=== PATIENT | female | born 1930 | race Caucasian/White ===

== ENCOUNTER 2017-02-04 09:53 | Day surgery (SDC) | payer OTHER ==
[~2017-02-04] VITALS: Ht 162.6 cm; Wt 82.0 kg
[~2017-02-04 09:53] MED LIST: AMLODIPINE-BEN1 EAC5 PO; ASPIRIN81 M2 PO; ATORVASTATIN CA10 MG PO; HYDROCHLOROTH12.5 M3 PO
== END 2017-02-04 12:23 | disposition home or self-care (01) ==
LOC: CATH 09:53
DX: C85.90 Non-Hodgkin lymphoma, unspecified, unspecified site (principal); I87.2 Venous insufficiency (chronic) (peripheral); Z83.3 Family history of diabetes mellitus
CPT/HCPCS: C1752; C1894; J0690; J1644; J2250; J3010; S0020

== ENCOUNTER → 2017-08-16 | Outpatient (CLI) | payer OTHER ==
[~2017-08-16] MED LIST changes: +ONDANSETRON HCL8 MG PO; +PROCHLORPERAZIN10 MG PO
== END | disposition home or self-care (01) ==
LOC: AMB 10:18
DX: Z45.2 Encounter for adjustment and management of vascular access device (principal); I87.8 Other specified disorders of veins; Z92.21 Personal history of antineoplastic chemotherapy

== ENCOUNTER 2017-12-09 11:54 | Emergency (ER) | payer OTHER ==
[~2017-12-09] VITALS: Ht 160 cm; Wt 77.9 kg
[2017-12-09 12:36] VITALS: BP 148/62
== END 2017-12-09 13:08 | disposition left against medical advice (07) ==
LOC: EME 11:54
DX: R79.89 Other specified abnormal findings of blood chemistry (principal); Z53.21 Procedure and treatment not carried out due to patient leaving prior to being seen by health care provider

== ENCOUNTER 2018-01-02 13:40 | Inpatient (IN) | payer OTHER ==
[~2018-01-02] VITALS: Ht 160 cm; Wt 77.2 kg
[2018-01-02 15:07] LABS: HEMATOCRIT 27.6 % (36.0-46.0); HEMOGLOBIN 8.9 G/DL (11.9-15.5); MCH 24.8 PG (29.0-34.0); MCHC 32.2 G/DL (30.0-36.0); MCV 76.9 FL (83-99); PLATELET COUNT 560 K/uL (156-360); RBC DIS.WIDTH-CV 17.3 % (11.8-14.6); RBC DIS.WIDTH-SD 47.5 % (39-53); RED BLOOD COUNT 3.59 M/uL (3.80-5.20)
[2018-01-02 15:18] LABS: CHLORIDE 100 mEq/L (99-109); POTASSIUM 4.1 mEq/L (3.7-5.4); SODIUM 134 mEq/L (136-147)
[2018-01-02 15:20] LABS: GLUCOSE 128 mg/dL (70-99)
[2018-01-02 15:23] LABS: CREATININE 1.6 mg/dL (0.6-1.3); GFR ESTIMATE (CALCULATED) 32 mL/min/
[2018-01-02 15:24] LABS: UREA NITROGEN (BUN) 22 mg/dL (9-23)
[2018-01-02 15:28] LABS: TROP-I INTERPRETATION NEGATIVE; TROPONIN-I 0.02 ng/mL (0.0-0.30)
[2018-01-02] MEDS ORDERED: VENTOLIN HFA18 GM IH (16:26)
[2018-01-02] MEDS ORDERED: ALEVE220 MG PO (16:27)
[2018-01-02 19:14] VITALS: BP 130/61
[2018-01-03] VITALS (7 sets, daily range): BP systolic 107–143; BP diastolic 53–70
[2018-01-03 06:01] LABS: HEMATOCRIT 24.6 % (36.0-46.0); HEMOGLOBIN 7.6 G/DL (11.9-15.5); MCH 24.4 PG (29.0-34.0); MCHC 30.9 G/DL (30.0-36.0); MCV 78.8 FL (83-99); PLATELET COUNT 462 K/uL (156-360); RBC DIS.WIDTH-CV 17.6 % (11.8-14.6); RED BLOOD COUNT 3.12 M/uL (3.80-5.20); WHITE BLOOD COUNT 14.9 K/uL (4.1-10.2)
[2018-01-03 06:23] LABS: CHLORIDE 105 MEQ/L (99-109); CREATININE 1.3 MG/DL (0.6-1.3); GFR ESTIMATE (CALCULATED) 41 mL/min/; GLUCOSE 136 mg/dL (70-99); POTASSIUM 3.9 MEQ/L (3.7-5.4); SODIUM 137 MEQ/L (136-147); UREA NITROGEN (BUN) 18 mg/dL (9-23)
[2018-01-03 12:04] LABS: HEMATOCRIT 26.7 % (36.0-46.0); HEMOGLOBIN 8.2 G/DL (11.9-15.5); MCV 79.2 FL (83-99)
[2018-01-03 12:45] LABS: APPEARANCE CLEAR ((CLEAR)); BILIRUBIN NEGATIVE; BLOOD SMALL; COLOR YELLOW ((YELLOW)); GLUCOSE (STRIP) NEGATIVE; KETONES NEGATIVE; LEUKOCYTES NEGATIVE; NITRITE NEGATIVE; PROTEIN (STRIP) NEGATIVE; SPECIFIC GRAVITY 1.016 (1.000-1.030)
[2018-01-03 13:13] LABS: BACTERIA RARE /HPF; EPITHELIAL CELLS 1+ /HPF; MUCUS NONE SEEN /LPF; RED BLOOD CELLS 0-5 /HPF (0-5); UCUL ADDED? YES
[2018-01-04 03:38] VITALS: BP 142/65
[2018-01-04 06:05] LABS: HEMATOCRIT 27.1 % (36.0-46.0); HEMOGLOBIN 8.2 G/DL (11.9-15.5); MCH 23.9 PG (29.0-34.0); MCHC 30.3 G/DL (30.0-36.0); PLATELET COUNT 515 K/uL (156-360); RBC DIS.WIDTH-CV 17.8 % (11.8-14.6); RBC DIS.WIDTH-SD 50.4 % (39-53); RED BLOOD COUNT 3.43 M/uL (3.80-5.20); WHITE BLOOD COUNT 14.1 K/uL (4.1-10.2)
[2018-01-04 06:28] LABS: ERTH.SED.RATE 87 MM/HR (0-30)
[2018-01-04 06:51] LABS: C-REACTIVE PROTEIN 112.7 MG/L (0-10); CHLORIDE 103 MEQ/L (99-109); CREATININE 1.4 MG/DL (0.6-1.3); GFR ESTIMATE (CALCULATED) 38 mL/min/; POTASSIUM 4.3 MEQ/L (3.7-5.4); SODIUM 134 MEQ/L (136-147); UREA NITROGEN (BUN) 18 mg/dL (9-23)
[2018-01-04 06:53] LABS: GLUCOSE 97 mg/dL (70-99)
[2018-01-04 07:26] VITALS: BP 122/66
[2018-01-04 12:19] VITALS: BP 126/61
[2018-01-04 16:16] VITALS: BP 142/68
[2018-01-04 20:07] VITALS: BP 132/62
[2018-01-04 22:51] VITALS: BP 136/63
[2018-01-05 03:57] VITALS: BP 123/59
[2018-01-05 05:53] LABS: HEMATOCRIT 24.8 % (36.0-46.0); HEMOGLOBIN 7.5 G/DL (11.9-15.5); MCH 24.1 PG (29.0-34.0); MCHC 30.2 G/DL (30.0-36.0); MCV 79.7 FL (83-99); PLATELET COUNT 475 K/uL (156-360); RBC DIS.WIDTH-CV 18.2 % (11.8-14.6); RBC DIS.WIDTH-SD 51.8 % (39-53); RED BLOOD COUNT 3.11 M/uL (3.80-5.20); WHITE BLOOD COUNT 14.1 K/uL (4.1-10.2)
[2018-01-05 06:15] LABS: CHLORIDE 104 MEQ/L (99-109); CREATININE 1.1 MG/DL (0.6-1.3); GFR ESTIMATE (CALCULATED) 50 mL/min/; GLUCOSE 95 mg/dL (70-99); POTASSIUM 4.7 MEQ/L (3.7-5.4); SODIUM 136 MEQ/L (136-147); UREA NITROGEN (BUN) 13 mg/dL (9-23)
[2018-01-05 07:08] VITALS: BP 122/60
[2018-01-05 11:25] VITALS: BP 140/60
[2018-01-05 15:30] VITALS: BP 130/61
== END 2018-01-05 16:43 | disposition home or self-care (01) | DRG 194 ==
LOC: EME 13:40 → EDOF 16:44 → 5SOUTH 16:44 → ENRESERV 16:46 → 5SOUTH 18:55
PROVIDERS: Emergency Medicine; Physician Assistant Medical; Student in an Organized Health Care Education/Training Program
DX: J18.9 Pneumonia, unspecified organism (principal); N17.9 Acute kidney failure, unspecified; E87.2 Acidosis; C83.30 Diffuse large B-cell lymphoma, unspecified site; R09.02 Hypoxemia; D63.8 Anemia in other chronic diseases classified elsewhere; D72.810 Lymphocytopenia; I10 Essential (primary) hypertension; E78.5 Hyperlipidemia, unspecified; M79.89 Other specified soft tissue disorders; Z66 Do not resuscitate; Z79.82 Long term (current) use of aspirin
CPT/HCPCS: 36415; 71045; 80048; 80053; 81003; 83605; 83615; 83880; 84145 90; 84484; 85014; 85018; 85025; 85027; 85379; 85651; 86140; 86355 90; 86359 90; 86360 90; 87040; 87086; 87449; 93005; 93970; 94640; 94799; 99281; 99285; J0692; J1644; J2405; J2543; J3370; J7030; J7050